=== PATIENT | female | born 1990 | race Caucasian/White ===

== ENCOUNTER 2019-10-05 09:41 | Emergency (ER) | payer OTHER, SELFPAY ==
[2019-10-05 10:45] VITALS: BP 139/72; PULSE 91; RESP 16; TEMP 36.4; O2SAT 100
--- NOTE | 2019-10-05 12:06 | ED.URI ---
HPI - URI/Sore Throat General Stated Complaint: sore throat runny nose cough sob Time Seen by Provider: 10/05/19 12:10 Source: patient and RN notes reviewed Mode of arrival: ambulatory Limitations: no limitations History of Present Illness HPI Narrative: 29 year old female who presents to [facility] care with complaints of sinus congestion, cough, headache, some dizziness and sore throat for the past 5 days. Patient denies any known fevers, chills, or sweats, denies any shortness of breath or any wheezing. Patient states that she has been taking Dayquil for her symptoms and Nyquil at HS. Patient has clear lungs on ascultation, no tachypnea or accessory ,uscle use noted, SAO2 100% on room air. Patient states some headache discomfort and occasional dizziness, denies any ear pain or pressure. Patient states that throat pain is 6/10 on pain scale with increase in pain with swallowing. MD elicited complaint: cough, sore throat and rhinorrhea Onset (ago): day(s) (5) Consistency: constant Severity: moderate Pain scale (0-10): 6 Description of mucous: clear Able to tolerate fluids by mouth: Yes Exacerbating factors: other (swallowing) Relieving factors: nothing Associated symptoms: headache, rhinorrhea, nasal congestion, sore throat, cough and other (dizziness) Treatments prior to arrival: other (Dayquil and Nyquil) Related Data Allergies Allergy/AdvReac Type Severity Reaction Status Date / Time acetaminophen Allergy Mild HIVES Verified 10/05/19 11:07 propoxyphene Allergy Mild HIVES Verified 10/05/19 11:07 Review of Systems Review of Systems: Narrative: CONSTITUTIONAL: no reported fever, chills, or sweats. EYES: Denies visual changes, redness, or discharge. ENT: reports rhinorrhea, congestion, sore throat, no otalgia. CARDIOVASCULAR: Denies chest pain, palpitations, or edema. RESPIRATORY:positive cough no dyspnea. GASTROINTESTINAL: Denies abdominal pain, nausea, vomiting, or diarrhea. GENITOURINARY: Denies dysuria or hematuria. SKIN: Denies rash or itching. MUSCULOSKELETAL: Denies back pain, joint pain, or myalgia. NEUROLOGIC: positve headache,no numbness, or weakness.Occasional dizziness PSYCHIATRIC: Denies anxiety or depression. All systems reviewed & are unremarkable except as noted in HPI and below PMFSH Past Medical History Medical History (Updated 10/10/19 @ 13:42 by Jessica Damon NP) No significant past medical history Social History Social History (Updated 10/05/19 @ 12:09 by Jessica Damon NP) Smoking status: Never smoker Living arrangements: with family Gender identity (if verbalized by the patient): Female Comments At time of signature, agree with nursing past medical, social history. There is no relevant family history pertinent to the presenting complaint Exam Narrative: Exam Narrative: GENERAL: Well-appearing, well-nourished, and in no acute distress. HEAD: Normocephalic, atraumatic. EYES: PERRLA and EOMI. ENT: Nares mild redness with clear rhinorrhea no epistaxis. Mucous membranes moist.TM's normal with good light reflex,throat mildly red with no lesions or acute tonsil enlargement NECK: Supple.no lymphadenopathy CHEST: Clear to auscultation. No respiratory distress.SAO2 100% on room air HEART: Regular rate and rhythm. No murmur heard. Normal peripheral pulses. ABDOMEN: Soft, nontender, nondistended, normal active bowel sounds. EXTREMITIES: Normal range of motion. No edema. SKIN: Warm, dry, no rash. NEURO: No focal deficits. Alert and oriented x3. Course Vital Signs Vital signs: Vital Signs Temperature 36.4 C 10/05/19 10:45 Pulse Rate 91 10/05/19 10:45 Respiratory Rate 16 10/05/19 10:45 Blood Pressure 139/72 10/05/19 10:45 Pulse Oximetry 100 10/05/19 10:45 Temperature 36.4 C 10/05/19 10:45 Pulse Rate 91 10/05/19 10:45 Respiratory Rate 16 10/05/19 10:45 Blood Pressure 139/72 10/05/19 10:45 Pulse Oximetry 100 10/05/19 10:45 MDM - URI/Sore Throat Differen
== END 2019-10-05 11:09 | disposition home or self-care (01) ==
PROVIDERS: Emergency Provider Registered Nurse
DX: J06.9 Acute upper respiratory infection, unspecified (principal); J02.9 Acute pharyngitis, unspecified
CPT/HCPCS: 87081; 87880; 99213; G0463